=== PATIENT | female | born 1970 | race Caucasian/White ===

== ENCOUNTER 2019-10-01 15:34 | Inpatient (IN) | payer OTHER, SELFPAY ==
[2019-10-01] MEDS ORDERED: MORPHINE SULFATE INJ 10 MG/ML VIAL IV ONE (15:50)
[2019-10-01] MEDS ORDERED: SODIUM CHLORIDE 0.9% 1000ML 1,000 ML IVS ONE ×2 (15:50→17:08)
[2019-10-01] MEDS ORDERED: ONDANSETRON INJ 4 MG/2 ML VIAL IV ONE (15:50)
[2019-10-01] MEDS ORDERED: VANCOMYCIN HCL INJ 1,000 MG, VANCOMYCIN HCL INJ 250 MG in SODIUM CHLORIDE 0.9% 250ML 25... IVPB ONE (15:52)
[2019-10-01] MEDS ORDERED: PIPERACILLIN/TAZOBACTAM 4.5 GM in SODIUM CHLORIDE 0.9% 100ML 100 ML IVPB ONE (15:52)
--- NOTE | 2019-10-01 15:57 | ED.PDOC ---
History of Present Illness - General Chief Complaint: Skin/Abrasion/Tear Time Seen by Provider: 10/01/19 15:42 Source: patient, RN notes reviewed, Vital Signs reviewed, family Exam Limitations: no limitations - History of Present Illness Initial Comments: Pt presents for 2 week h/o redness, swelling and drainage to left foot. States she has h/o DM and frequent left foot infections so 2 years ago she had partial amputation of left foot by a [employer] in [place]. The wound became infected several months later and was treated with wound vac with improvement. She has seen several wound care doctors in this area in the past 2 years intermitently, but lost her insurance and has not been on any antibiotics or getting wound care for several months. She denies fever, chills, cough, body aches. Reports pain, redness, swelling and foul smelling drainage from left foot wounds for several days. Allergies/Adverse Reactions: Allergies NO KNOWN ALLERGY Allergy (Verified 10/01/19 16:37) Home Medications: Ambulatory Orders Divalproex Sodium [Divalproex Sodium ER] 500 mg PO BEDTIME 10/01/19 HYDROcodone 5MG/APAP 325MG [Winthrop 5/325] 1 ea PO Q4H PRN 10/01/19 Human Insulin Aspart [Novolog] 20 unit SC TID 10/01/19 Insulin Glargine [Lantus Solostar] 45 unit SC DAILY 10/01/19 Lisinopril 40 mg PO DAILY 10/01/19 Pregabalin [Lyrica] 200 mg PO DAILY PRN 10/01/19 Tizanidine HCl [Tizanidine Hydrochloride] 4 mg PO TID PRN 10/01/19 Review of Systems - Review of Systems Constitutional: Denies: chills, fever, weakness EENTM: Denies: nose congestion, throat pain Respiratory: Denies: cough, short of breath Cardiology: Denies: chest pain, palpitations, syncope Gastrointestinal/Abdominal: Denies: abdominal pain, diarrhea, vomiting Genitourinary: States: no symptoms reported Musculoskeletal: States: other - Left foot pain and redness Skin: States: other - infection with foul smelling drainage to left foot Neurological: Denies: headache, paresthesia Hematologic/Lymphatic: States: no symptoms reported All other Systems: Reviewed and Negative Family Medical History - Family History Mother Family History: No Known Physical Exam - Physical Exam General Appearance: Alert, Comfortable, No apparent distress Neck: non-tender, full range of motion, supple Respiratory: chest non-tender, lungs clear, normal breath sounds, no respiratory distress Cardiovascular/Chest: regular rate, rhythm, no edema, no murmur Gastrointestinal/Abdominal: non tender, soft, no pulsatile mass Neurologic: no motor/sensory deficits, alert, normal mood/affect Comments: Left foot is partially amputated at midfoot region. The surgical incision from previous amputation on distal stump has 2 open wounds with foul smeeling yellow thick drainage. There is also a 2x4 cm wound to lateral portion of the foot with no drainage. The midfoot region is diffusely erythematous and TTP with streaking redness to the lower leg. Progress - Progress Progress: 10/01/19 17:06 D/W Ranulfo Espinoza, hospitalist. Will admit. Requests IVF and antibiotics and he will start SSI for hyperglycemia 10/01/19 17:12 Pt presents with several day h/o red, swollen, foul smelling drainage from left foot. Found to have cellulitis needing IV antibiotics. imaging shows no sign of osteo at this time. Has hyperglycemia that I have treated with IVF and admitting team to start insulin. Pt agrees wwith admission for continued treatment. - Results/Orders Results/Orders: EXAM DESCRIPTION: Foot,Left 3 Views CLINICAL HISTORY: foot infection COMPARISON: None Available. TECHNIQUE: AP, LATERAL, AND OBLIQUE FINDINGS: The visualized bones appear well mineralized. Changes of amputation at the level of the midfoot. Ulceration of the soft tissue stump with no radiographic evidence of osteomyelitis. IMPRESSION: Ulceration of the soft tissue stump with no radiographic evidence of osteomyelitis. 10/01/19 15:50 IV:Start .ONCE 10/01/19 15:52 Vancomycin HCl Inj 1,000 mg Vancomycin HCl Inj 250 mg Sodium Chloride 0.9% 250Ml [NS 250ml] 250 ml IVPB ONCE 10/01/19 16:08 BLOOD CULTURE Stat 10/01/19 16:37 Sodium Chloride 0.9% 1000ML [Ns 1000 ml] 1,000 ml IVS .QD 10/01/19 16:41 WOUND CULTURE Stat 10/01/19 17:08 BOLUS Sodium Chloride 0.9% 1000ML [Ns 1000 ml] 1,000 ml IVS ONCE Laboratory Results - last 24 hr 10/01/19 10/01/19 10/01/19 16:08 16:08 16:08 WBC 13.0 H RBC 4.49 Hgb 13.5 Hct 39.7 MCV 88.4 MCH 30.0 MCHC 33.9 RDW 14.2 Plt Count 327 MPV 8.3 Absolute Neuts (auto) 11.00 H Absolute Lymphs (auto) 0.70 L Absolute Monos (auto) 1.20 H Absolute Eos (auto) 0.00 Absolute Basos (auto) 0.10 Neutrophils % 85.0 H Lymphocytes % 5.3 L Monocytes % 9.1 H Eosinophils % 0.1 L Basophils % 0.5 Sodium 124 L Potassium 3.7 Chloride 94 L Carbon Dioxide 15 L Anion Gap 18.7 H BUN 17 Creatinine 0.98 BUN/Creatinine Ratio 17.3 Random Glucose 446 H* Serum Osmolality 269.7 L Calcium 9.1 Total Bilirubin 1.1 H AST 11 ALT 10 Alkaline Phosphatase 124 H Serum Total Protein 8.0 Albumin 2.9 L Globulin 5.1 H Albumin/Globulin Ratio 0.6 L Serum Ketones Small Departure - Departure Clinical Impression: Hyperglycemia due to type 1 diabetes mellitus, Cellulitis of left foot, Leukocytosis Time of Disposition: 17:11 Disposition: Admit Patient Condition: Fair Home Medications: Ambulatory Orders Divalproex Sodium [Divalproex Sodium ER] 500 mg PO BEDTIME 10/01/19 HYDROcodone 5MG/APAP 325MG [Winthrop 5/325] 1 ea PO Q4H PRN 10/01/19 Human Insulin Aspart [Novolog] 20 unit SC TID 10/01/19 Insulin Glargine [Lantus Solostar] 45 unit SC DAILY 10/01/19 Lisinopril 40 mg PO DAILY 10/01/19 Pregabalin [Lyrica] 200 mg PO DAILY PRN 10/01/19 Tizanidine HCl [Tizanidine Hydrochloride] 4 mg PO TID PRN 10/01/19 Decision To Admit - Decistion To Admit Decision to Admit Reason: Admit from ER Decision to Admit Date: 10/01/19 Decision to Admit Time: 17:10
[2019-10-01] MEDS ORDERED: VANCOMYCIN HCL INJ 500 MG VIAL ONE (16:11)
[2019-10-01] MEDS ORDERED: SODIUM CHLORIDE 0.9% 250ML 250 ML ONE (16:11)
[2019-10-01] MEDS ORDERED: VANCOMYCIN HCL INJ 1,000 MG VIAL IVPB ONE (16:11)
[2019-10-01] MEDS ORDERED: PIPERACILLIN/TAZOBACTAM 2.25 GM VIAL IVPB ONE (16:16)
[2019-10-01] MEDS ORDERED: SODIUM CHLORIDE 0.9% 100ML 100 ML IVPB ONE ×2 (16:17→22:09)
--- NOTE | 2019-10-01 16:24 | RAD ---
EXAM DESCRIPTION: Foot,Left 3 Views CLINICAL HISTORY: foot infection COMPARISON: None Available. TECHNIQUE: AP, LATERAL, AND OBLIQUE FINDINGS: The visualized bones appear well mineralized. Changes of amputation at the level of the midfoot. Ulceration of the soft tissue stump with no radiographic evidence of osteomyelitis. IMPRESSION: Ulceration of the soft tissue stump with no radiographic evidence of osteomyelitis. Electronically signed by: Roxi Dai MD 10/01/2019 4:23 PM CDT
[2019-10-01] MEDS ORDERED: SODIUM CHLORIDE 0.9% 1000ML 1,000 ML IVS PRN (16:37)
[2019-10-01] MEDS ORDERED: SODIUM CHLORIDE 0.9% (FLUSH) 10 ML SYG IV PRN (17:35)
[2019-10-01] MEDS ORDERED: DEXTROSE 50% 25 GM/50 ML SYG IV PRN (17:37)
[2019-10-01] MEDS ORDERED: GLUCAGON INJ 1 MG VIAL SUBCU PRN (17:37)
[2019-10-01] MEDS ORDERED: VANCOMYCIN PER PHARMACY IVPB SCH (18:00)
[2019-10-01] MEDS ORDERED: IV SET AND CAP CHANGE INJ INJ SCH (18:00)
--- NOTE | 2019-10-01 18:31 | HP ---
SUPERVISING PHYSICIAN: Giuseppe Rowe MD CHIEF COMPLAINT: Left foot redness and swelling. HISTORY OF PRESENT ILLNESS: This is a 49-year-old female with a history of uncontrolled diabetes and diabetic foot ulcers who came in with two-week history of redness, swelling and drainage to the left foot. Apparently, she has been off of her medicines for some time due to loss of insurance and unable to be seen by a doctor as well and no wound care. She had a partial amputation of the left foot and developed some redness and swelling on the left foot. She noted that the redness, swelling and drainage has been worse over the past three days. She came to the Emergency Room. In the ER, workup included labs and an x-ray of the left foot. There was no osteomyelitis seen on the x-ray. She did have leukocytosis with a white count of 13,000 with left shift of 85% neutrophils. Chemistry showed sodium 124, potassium 3.7, chloride 94, CO2 15, BUN 17, creatinine 0.98. Glucose was 446, calcium 9.1. Due to these reasons, she was referred for admission for early DKA and left foot cellulitis. PAST MEDICAL HISTORY: 1. Uncontrolled diabetes mellitus. 2. Hypertension. 3. Hyperlipidemia. 4. Bipolar disorder. 5. Medical Noncompliance. PAST SURGICAL HISTORY: 1. Partial left foot amputation. 2. Neuroma removal from her left arm three times. 3. Tubal surgery. MEDICATIONS: Please see med rec list once verified in the computer. FAMILY HISTORY: Mother from diabetes. Other family members with diabetes as well. SOCIAL HISTORY: No drinking, no smoking, but she does smoke marijuana on occasion. REVIEW OF SYSTEMS: CONSTITUTIONAL: No fever or chills. No recent weight loss or weight gain. HEENT: No headaches, vision changes, ear pain, nasal congestion or throat pain. RESPIRATORY: No cough, hemoptysis or pleuritic chest pain. CARDIOVASCULAR: No chest pain, palpitations or peripheral edema. GASTROINTESTINAL: No nausea, vomiting, diarrhea, constipation or abdominal pain. GENITOURINARY: No dysuria, frequency or flank pain. SKIN: As noted in history of present illness. NEUROLOGIC: No syncope, paresthesias or seizures. PHYSICAL EXAMINATION: VITAL SIGNS: Blood pressure 131/88. Heart rate 106. Respiratory rate 20. Temperature 97.3. Oxygen saturation 99%. GENERAL: Ms. Fernández is a 49-year-old female in no active distress currently. NEUROLOGIC: The patient is alert. LUNGS: Clear to auscultation bilaterally. CARDIOVASCULAR: Regular rate and rhythm. Normal S1, S2. ABDOMEN: Soft. Positive bowel sounds. GENITOURINARY: Deferred. EXTREMITIES: Lower extremities with no edema. She does have a wound to the stump of the left foot. This is erythematous with active drainage and eschar noted. LABORATORY: Labs and films are as discussed in history of present illness. ASSESSMENT: 1. Left foot cellulitis 2. Early diabetic ketoacidosis. 3. Metabolic acidosis. 4. Uncontrolled diabetes mellitus. 5. Hypertension. 6. History of bipolar disorder. 7. Medical noncompliance secondary to loss of insurance. PLAN: The patient will be admitted to the hospital. Aggressive IV fluid resuscitation has been ordered. I will give her sliding scale insulin initially added to the fluids hoping that will be sufficient. If not, we can start her on IV insulin drip. I ordered Zosyn and vancomycin. The wound has been cultured. DVT and GI ulcer prophylaxis have been ordered as well. We will resume her home medications once they have been given to us by the patient and verified in the computer. I also think she needs a surgical evaluation because the left lower extremity cellulitis and she may need debridement. #[id number] [facility]
[2019-10-01] MEDS: ENOXAPARIN SODIUM 40 MG/0.4 ML SYG SUBCU SCH (20:28)
[2019-10-01] MEDS: LACTATED RINGERS 1,000 ML IVS PRN (20:29)
[2019-10-01] MEDS ORDERED: ONDANSETRON INJ 4 MG/2 ML VIAL IV PRN (21:51)
[2019-10-01] MEDS ORDERED: CALCIUM CARBONATE (ANTACID) 500 MG CHEWABLE TAB PO PRN (21:51)
[2019-10-01] MEDS ORDERED: PANTOPRAZOLE SODIUM IV 40 MG VIAL IV SCH (22:00)
[2019-10-01] MEDS ORDERED: PIPERACILLIN/TAZOBACTAM 3.375 GM VIAL IVPB ONE (22:09)
[2019-10-01] MEDS: INSULIN LISPRO 100 UNITS/ML PEN SUBCU SCH (22:15)
--- NOTE | 2019-10-01 22:17 | RAD ---
EXAM DESCRIPTION: Chest,1 View CLINICAL HISTORY:49 years Female, verify placement of central line Comparison: Chest radiograph dated 06/10/2015 FINDINGS/IMPRESSION: Placement of right IJ central venous catheter terminating at the cavoatrial junction. No focal lung consolidation. No pleural effusion. No pneumothorax. Cardiomediastinal silhouette is within normal limits. No acute osseous abnormality. Electronically signed by: Erick Ragsdale DO 10/01/2019 10:16 PM CDT
[2019-10-01] MEDS: MORPHINE SULFATE INJ 10 MG/ML VIAL IV PRN (22:34)
[2019-10-01] MEDS: PIPERACILLIN/TAZOBACTAM 3.375 GM in SODIUM CHLORIDE 0.9% 100ML 100 ML IVPB SCH (23:57)
[2019-10-02] MEDS ORDERED: DIVALPROEX SODIUM DR 250 MG TAB ONE (02:32)
[2019-10-02] MEDS ORDERED: PREGABALIN 100 MG CAP ONE ×2 (02:33→19:00)
[2019-10-02] MEDS: tiZANidine 4 MG TAB PO PRN (02:40)
[2019-10-02] MEDS: MORPHINE SULFATE INJ 10 MG/ML VIAL IV PRN ×4 (06:13→23:06)
[2019-10-02] MEDS: LACTATED RINGERS 1,000 ML IVS PRN ×2 (06:14→17:29)
[2019-10-02] MEDS: INSULIN LISPRO 100 UNITS/ML PEN SUBCU SCH ×7 (07:51→20:50)
--- NOTE | 2019-10-02 07:57 | OP ---
SUPERVISING PHYSICIAN: Giuseppe Rowe MD DATE OF PROCEDURE: 10/01/19 INDICATION: Cellulitis. PROCEDURE: Right IJ central line placement. PHYSICIAN: YONAS Santos. COMPLICATIONS: None. ESTIMATED BLOOD LOSS: Less than 10 mL. PROCEDURE: The patient was prepped and draped in a sterile manner. The right IJ was visualized using ultrasound via the SonoSite. Local anesthesia was obtained using 1% lidocaine. The right IJ vein was accessed using Seldinger technique. The guidewire was advanced and subsequently the needle was removed. A small incision was made at the insertion site. A dilator was then used to create a tract in the skin. The dilator was removed and subsequently the triple lumen device was advanced over the guidewire. The guidewire was then removed. Venous blood was aspirated from all three ports. Each port was then flushed with 10 mL of sterile saline. The device was secured with 3-0 Silk sutures times 2. Antimicrobial patch was placed and sterile dressing was applied. A chest x-ray was also ordered and confirmed appropriate placement of the right IJ central line with no complications such as pneumothorax. [facility][id number] [facility]
[2019-10-02] MEDS ORDERED: SODIUM CHLORIDE 0.9% 250ML 250 ML ONE ×2 (09:06→18:59)
[2019-10-02] MEDS ORDERED: VANCOMYCIN HCL INJ 1,000 MG VIAL IVPB ONE ×2 (09:07→19:00)
[2019-10-02] MEDS ORDERED: SODIUM CHLORIDE 0.9% 100ML 100 ML IVPB ONE ×3 (09:07→23:42)
[2019-10-02] MEDS ORDERED: PIPERACILLIN/TAZOBACTAM 3.375 GM VIAL IVPB ONE ×3 (09:07→23:41)
[2019-10-02] MEDS: PIPERACILLIN/TAZOBACTAM 3.375 GM in SODIUM CHLORIDE 0.9% 100ML 100 ML IVPB SCH ×2 (09:58→17:29)
[2019-10-02] MEDS: INSULIN DETEMIR 100 UNITS/ML PEN SUBCU SCH (09:58)
[2019-10-02] MEDS: VANCOMYCIN HCL INJ 1,000 MG in SODIUM CHLORIDE 0.9% 250ML 250 ML IVPB SCH ×2 (09:58→20:52)
[2019-10-02] MEDS: LISINOPRIL 10 MG TAB PO SCH (09:59)
[2019-10-02] MEDS: PANTOPRAZOLE SODIUM TAB 40 MG PO SCH (10:00)
--- NOTE | 2019-10-02 14:41 | US ---
EXAM DESCRIPTION: Extremity,Lower LT Arteries: Ultrasound. CLINICAL HISTORY: cellulitis COMPARISON: Duplex ultrasound evaluation of the left lower extremity deep venous system. TECHNIQUE: Doppler evaluation of the left lower extremity arterial flow waveforms and velocities. FINDINGS: Arterial waveforms in the left lower extremity are multiphasic down to the left peroneal artery. Monophasic left popliteal artery and posterior tibial artery.. Comments: Elevated velocity in every vessel except left posterior tibial artery. IMPRESSION: Elevated velocities in the left lower extremity arterial system. Suspect significant atherosclerotic occlusive disease in the left posterior tibial artery. Electronically signed by: Andrew Lemus MD 10/02/2019 2:40 PM CDT
--- NOTE | 2019-10-02 14:45 | US ---
EXAM DESCRIPTION: Venous,Lower Extremity LT: ULTRASOUND. CLINICAL HISTORY: cellulitis. Left lower extremity. COMPARISON: None Available. TECHNIQUE: Jackson-scale and doppler sonographic evaluation of the deep venous system of the left lower extremity. FINDINGS: Doppler evaluation shows normal color flow and normal phasicity and augmentation of the left common femoral vein femoral vein, popliteal vein, greater saphenous vein, junction with the CFV. Also normal color flow and normal phasicity and augmentation of the peroneal, and posterior tibial vein. The left lower extremity deep veins were completely compressible; normal occlusion with transducer pressure. Jackson-scale survey showed no echogenic thrombus within these veins. IMPRESSION: 1. Duplex ultrasound evaluation of the left lower extremity deep venous system showing no evidence of thrombosis. Electronically signed by: Andrew Lemus MD 10/02/2019 2:43 PM CDT
--- NOTE | 2019-10-02 14:57 | PN ---
SUPERVISING PHYSICIAN: Giuseppe Rowe MD DATE: 10/02/19 SUBJECTIVE: The patient is sitting up in bed. She complains that her foot is hurting and it is oozing from her sores on the left foot. Ultrasound is in her room completing left lower extremity studies now. Otherwise, no complaints of nausea, vomiting, shortness of breath or chest pain. OBJECTIVE: VITAL SIGNS: Temperature 97.5. Heart rate 74. Blood pressure 91/56. Respiratory rate 14. O2 saturation 99% on room air. RESPIRATORY: Essentially clear to auscultation bilaterally. CARDIAC: Regular rate and rhythm. GASTROINTESTINAL: Abdomen is soft, nondistended, nontender. Bowel sounds are positive. EXTREMITIES: There is minimal edema to her left lower extremity. Her right lower extremity has no edema. The wound to the stump of her left foot is erythematous with multiple wounds that are draining. She also has several areas of eschar noted. NEUROLOGIC: Awake, alert and oriented times three. LABORATORY: WBCs are now 9,900 with hemoglobin 11.4, hematocrit 33.6. Sodium is improved to 128 with potassium 3.8, chloride 100, carbon dioxide 17. Blood sugars have run between 286 and 343. All other labs and films have been reviewed via the EMR. ASSESSMENT: 1. Left foot cellulitis 2. Early diabetic ketoacidosis. 3. Metabolic acidosis. 4. Uncontrolled diabetes mellitus. 5. Hypertension. 6. History of bipolar disorder. 7. Medical noncompliance secondary to loss of insurance. PLAN: We will continue present supportive care including her Zosyn and vancomycin. I have rechecked her ketones. If she continues to have those, we will have to be more aggressive with her insulin therapy. [employer] is working on her bianca care. I did speak with Dr. Mena and he asked for a left lower extremity arterial and venous ultrasounds and those have been ordered. I order labs for in the morning. Depending on the findings of that testing, we will discuss with Dr. Mena if she is a candidate for staying here with debridement or if other plan of care should be implemented. Otherwise, we will continue to monitor the patient closely and follow as needed. #[id number] [facility]
[2019-10-02] MEDS ORDERED: INSULIN LISPRO 100 UNITS/ML PEN SUBCU ONE ×2 (17:04→19:10)
[2019-10-02] MEDS: ENOXAPARIN SODIUM 40 MG/0.4 ML SYG SUBCU SCH (17:33)
[2019-10-02] MEDS ORDERED: KCL 20 MEQ/NS 1,000 ML IVS ONE (17:53)
[2019-10-02] MEDS ORDERED: DIVALPROEX SODIUM ER 250 MG TAB PO ONE (18:59)
[2019-10-02] MEDS ORDERED: PREGABALIN 200 MG PO SCH (21:00)
[2019-10-02] MEDS ORDERED: DIVALPROEX SODIUM 500 MG PO SCH (21:00)
[2019-10-02] MEDS ORDERED: PREGABALIN 100 MG CAP PO SCH (21:00)
[2019-10-02] MEDS ORDERED: DIVALPROEX SODIUM ER 250 MG TAB PO SCH (21:00)
[2019-10-02] MEDS ORDERED: INSULIN DETEMIR 100 UNITS/ML PEN SUBCU ONE (21:40)
[2019-10-02] MEDS ORDERED: diphenhydrAMINE HCL 25 MG CAP PO PRN (21:50)
[2019-10-03] MEDS: PIPERACILLIN/TAZOBACTAM 3.375 GM in SODIUM CHLORIDE 0.9% 100ML 100 ML IVPB SCH ×3 (00:01→15:30)
[2019-10-03] MEDS: MORPHINE SULFATE INJ 10 MG/ML VIAL IV PRN (03:06)
[2019-10-03] MEDS: PANTOPRAZOLE SODIUM TAB 40 MG PO SCH (06:34)
[2019-10-03] MEDS: INSULIN LISPRO 100 UNITS/ML PEN SUBCU SCH ×6 (07:17→15:30)
[2019-10-03] MEDS ORDERED: PIPERACILLIN/TAZOBACTAM 3.375 GM VIAL IVPB ONE ×2 (07:27→15:15)
[2019-10-03] MEDS ORDERED: SODIUM CHLORIDE 0.9% 100ML 100 ML IVPB ONE ×2 (07:27→15:16)
[2019-10-03] MEDS ORDERED: SODIUM CHLORIDE 0.9% 250ML 250 ML ONE (08:23)
[2019-10-03] MEDS ORDERED: VANCOMYCIN HCL INJ 1,000 MG VIAL IVPB ONE (08:23)
[2019-10-03] MEDS ORDERED: MAGNESIUM SULFATE PREMIX 2GM 2 GM in PREMIX BAG 1 BAG IVPB ONE (08:39)
[2019-10-03] MEDS ORDERED: POTASSIUM CHLORIDE 20 MEQ TAB PO ONE (08:40)
[2019-10-03] MEDS ORDERED: MAGNESIUM SULFATE PREMIX 2GM 50 ML IVPB ONE (08:48)
[2019-10-03] MEDS: INSULIN DETEMIR 100 UNITS/ML PEN SUBCU SCH (08:55)
[2019-10-03] MEDS: LISINOPRIL 10 MG TAB PO SCH (10:10)
[2019-10-03] MEDS: VANCOMYCIN HCL INJ 1,000 MG in SODIUM CHLORIDE 0.9% 250ML 250 ML IVPB SCH (10:11)
[2019-10-03 10:51] VITALS: O2SAT 96
[2019-10-03] MEDS ORDERED: HYDROcodone 5MG/APAP 325MG 1 EA TAB PO PRN (11:53)
[2019-10-03] MEDS ORDERED: INSULIN LISPRO 100 UNITS/ML PEN SUBCU ONE (11:56)
[2019-10-03] MEDS: tiZANidine 4 MG TAB PO PRN (12:00)
--- NOTE | 2019-10-03 13:23 | MRI ---
EXAM DESCRIPTION: MRI left foot CLINICAL HISTORY: Previous amputation. Nonhealing wound. Evaluate for osteomyelitis. COMPARISON: Radiograph 10/01/2019 TECHNIQUE: Multiplanar, multisequence MR images of the left foot FINDINGS: Transmetatarsal amputation. Previous radiograph demonstrates large soft tissue wound with swelling and air in the soft tissues. Heterotopic ossification dorsal to the metatarsals. Extensive open wound of the skin and subcutaneous soft tissues plantar lateral mostly over the third through fifth metatarsals. Air within the soft tissues. Heterogeneous fluid consistent with abscess Marrow edema throughout the metatarsals. The T1-weighted images demonstrate mild intermediate signal most significantly in the fourth and fifth metatarsals. Relative preservation of T1 fatty marrow signal in the first through third metatarsals. Small joint effusions tarsometatarsal and navicular cuneiform. Small moderate joint effusion calcaneocuboid subtalar and ankle joint. No diagnostic chondral or osseous erosion along the joints. Diffuse marrow edema throughout the cuboid, cuneiform and navicular bones. Marrow edema in the lateral body of the calcaneus. No significant marrow edema in the talus Diffuse subcutaneous soft tissue edema and swelling around the ankle and foot. Large well-corticated plantar calcaneal spur. Moderate tendon sheath effusion extensor digitorum with fluid in the extensor digitorum tendon sheath at the level of the ankle. Minimal tendon sheath fluid peroneal tendons and posterior tibial IMPRESSION: Extensive cellulitis. Soft tissue defect and underlying abscess overlies the distal metatarsals. The edema within the metatarsals is consistent with osteomyelitis with the most significant marrow signal abnormality in the fourth and fifth metatarsals Multifocal tarsal marrow edema and joint effusions. In light of the extensive soft tissue infection, compatible with but not diagnostic of early manifestation of septic arthritis. No diagnostic chondral or osseous erosions. Extensor digitorum tenosynovitis compatible with septic tenosynovitis Electronically signed by: Giuseppe Mercado MD 10/03/2019 1:21 PM CDT
[2019-10-03 17:32] VITALS: BP 120/73; TEMP 97.9
[2019-10-03] MEDS ORDERED: INSULIN DETEMIR 100 UNITS/ML PEN SUBCU SCH (21:00)
--- NOTE | 2019-10-09 07:55 | DS ---
SUPERVISING PHYSICIAN: Giuseppe Rowe MD DISCHARGE DIAGNOSIS: 1. Left foot cellulitis with osteomyelitis. 2. Early diabetic ketoacidosis. 3. Metabolic acidosis. 4. Uncontrolled diabetes mellitus. 5. Hypertension. 6. History of bipolar disorder. 7. Medical noncompliance secondary to loss of insurance. HISTORY OF PRESENT ILLNESS: This is a 49-year-old female with a history of uncontrolled diabetes and diabetic foot ulcers who came in with two-week history of redness, swelling and drainage to the left foot. Apparently, she has been off of her medicines for some time due to loss of insurance and unable to be seen by a doctor as well and no wound care. She had a partial amputation of the left foot and developed some redness and swelling on the left foot. She noted that the redness, swelling and drainage has been worse over the past three days. She came to the Emergency Room. In the ER, workup included labs and an x-ray of the left foot. There was no osteomyelitis seen on the x-ray. She did have leukocytosis with a white count of 13,000 with left shift of 85% neutrophils. Chemistry showed sodium 124, potassium 3.7, chloride 94, CO2 15, BUN 17, creatinine 0.98. Glucose was 446, calcium 9.1. Due to these reasons, she was referred for admission for early DKA and left foot cellulitis. HOSPITAL COURSE: The patient as given aggressive fluid resuscitation and her ketones finally were negative. She was put on aggressive sliding scale insulin for her blood sugars. She was given Zosyn and vancomycin for her foot. Recommendations by the general surgeon advised wound care clinic with extensive debridement of that left lower foot as well as doing an MRI. MRI was consistent with osteomyelitis and it was recommended she be transferred to a foot facility with a wound care clinic as well as a surgeon that could take care of her osteomyelitis as well as her lower extremity amputation. LABORATORY: Her initial WBCs were 13,000. They came down to 9,900. She did initially have a left shift on her differential. Her hemoglobin was 11.4 and hematocrit 33.6. Blood sugars ran between 193 and greater than 400. Her sodium started out at 127 and came up to 128. Her carbon dioxide was 15 and came up to 24. Magnesium was 1.7 and required supplementation. She came in with a small amount of serum ketones that became negative after aggressive fluid resuscitation. MICROBIOLOGY: Her wound cultures were pending. Her blood cultures were pending. RADIOLOGY: Lower extremity ultrasound, both arterial and venous, showed no evidence of DVT and elevated velocities in the left lower extremity arterial system, suspect significant atherosclerotic occlusive disease in the left posterior tibial artery. Her MRI of her left lower extremity showed extensive cellulitis, soft tissue defect and underlying abscess overlies the distal metatarsal, edema within the metatarsal is consistent with osteomyelitis with the most significant marrow signal abnormality in the fourth and fifth metatarsals. All other labs and films were reviewed via the EMR. DISCHARGE PLAN: I spoke with the hospitalist in [place] at [facility] and they agreed to take the patient in transfer. The patient refused transfer, so she is leaving the hospital against medical advice. It was recommended that she followup as soon possible with someone to take care of the osteomyelitis as it will require extensive treatment and long- term antibiotic therapy. She is discharged on her home medications that she is to resume and increase her activity as tolerated. She is to return to the hospital or followup with her primary care physician for any problems or complications. Again, it was strongly recommended that she go to a facility that can take care of her wound care as well as possible amputation. She is leaving the hospital against medical advice. DISCHARGE MEDICATIONS: 1. Tizanidine. 2. Lyrica. 3. Lantus. 4. Lisinopril. 5. Hydrocodone. 6. Divalproex. 7. NovoLog insulin. 8. Promethazine. 9. Diphenhydramine. [facility][id number] [facility]
== END 2019-10-03 17:15 | disposition left against medical advice (07) | DRG 564 ==
LOC: ER 15:34 → OBSVTOIN 18:16 → MS 18:16
PROVIDERS: ADMIT Nurse Practitioner; ATTEND Nurse Practitioner Acute Care
PROC: 02HV33Z Insertion of Infusion Device into Superior Vena Cava, Percutaneous Approach (ICD-10-PCS; principal; 2019-10-01)
PROC: B548ZZA Ultrasonography of Superior Vena Cava, Guidance (ICD-10-PCS; 2019-10-01)
DX: T87.44 Infection of amputation stump, left lower extremity (principal); E11.10 Type 2 diabetes mellitus with ketoacidosis without coma; M86.8X7 Other osteomyelitis, ankle and foot; L03.116 Cellulitis of left lower limb; E11.69 Type 2 diabetes mellitus with other specified complication; L97.529 Non-pressure chronic ulcer of other part of left foot with unspecified severity; I10 Essential (primary) hypertension; F31.9 Bipolar disorder, unspecified; E11.621 Type 2 diabetes mellitus with foot ulcer; E11.51 Type 2 diabetes mellitus with diabetic peripheral angiopathy without gangrene; E78.5 Hyperlipidemia, unspecified; Z91.120 Patient's intentional underdosing of medication regimen due to financial hardship; Z89.432 Acquired absence of left foot; Z79.891 Long term (current) use of opiate analgesic; Z79.4 Long term (current) use of insulin; Z79.899 Other long term (current) drug therapy; Y83.5 Amputation of limb(s) as the cause of abnormal reaction of the patient, or of later complication, without mention of misadventure at the time of the procedure; Y92.9 Unspecified place or not applicable